=== PATIENT | female | born 1985 | race Caucasian/White ===

== ENCOUNTER 2017-12-01 20:38 | Emergency (ER) | payer OTHER ==
[~2017-12-01] VITALS: Ht 175.3 cm; Wt 74.8 kg
[~2017-12-01 20:38] MED LIST: HYDROXYZINE HCL50 M1 PO; PREDNISONE10 M2 PO
[2017-12-01 20:55] VITALS: BP 137/88
--- NOTE | 2017-12-01 22:11 | ED HAND/WRIST INJURY COMPLAINT ---
History of Present Illness General Chief Complaint: Laceration Procedure Stated Complaint: LAC ON L INDEX FINGER Source: patient Exam Limitations: no limitations Vital Signs & Intake/Output Vital Signs & Intake/Output Vital Signs Date Time Temp Pulse Resp B/P B/P Pulse O2 O2 Flow FiO2 Mean Ox Delivery Rate 12/01 2054 97.6 67 20 137/88 97 Room Air ED Intake and Output 12/02 0000 12/01 1200 Intake Total Output Total Balance Patient 165 lb Weight Weight Estimated Measurement Method Allergies Coded Allergies: azithromycin (From ZITHROMAX) (ANALPHYLAXIS 11/07/17) cefuroxime (From CEFTIN) (ANAPHYLAXIS 11/07/17) Reconcile Medications Hydroxyzine Hydrochloride (Atarax) 50 MG TAB 1 TAB PO TID PRN ITCHING Prednisone 10 MG TABLET 1 DOSE PO ONCE DAILY ALLERGIC REACTION 4 TABS po X 3 DAYS THEN 3 TABS po X 3 DAYS THEN 2 TABS po X 3 DAYS THEN 1 TAB PO X 3 DAYS Triage Note: RECEIVED 31 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 OCCURED AT HOME ON KNIFE. Triage Nurses Notes Reviewed? yes Occurred: just prior to arrival Duration: minute(s): Timing: single episode today Injury Environment: home Severity: mild Pain/Injury Location: Right: 1st finger. Context: laceration Method of Injury: laceration : No Patient currently breastfeeds: No HPI: 31yo female presents to ED complaining of laceration to right index finger. Patient states she cut finger on louis razor blade at home prior to arrival. Patient applied pressure and band-aid and presented here to ED. patient is unsure when her last tetanus vaccine was. Patient was able to control bleeding well prior to arrival. Patient denies numbness, tingling, limited range of motion. (Yue Cervantes) Past History Travel History Traveled to [place] past 21 day No Medical History Any Pertinent Medical History? see below for history Neurological: NONE EENT: NONE Cardiovascular: NONE Respiratory: asthma Gastrointestinal: Crohn's disease Hepatic: NONE Renal: NONE Musculoskeletal: NONE Psychiatric: NONE Endocrine: NONE Blood Disorders: NONE Cancer(s): NONE Surgical History Surgical History: none Psychosocial History What is your primary language Latvian Tobacco Use: Never used Family History Hx Contributory? No (Yue Cervantes) Review of Systems Review of Systems Constitutional: Reports: no symptoms. EENTM: Reports: no symptoms. Respiratory: Reports: no symptoms. Cardiovascular: Reports: no symptoms. GI: Reports: no symptoms. Genitourinary: Reports: no symptoms. Musculoskeletal: Reports: see HPI. Skin: Reports: see HPI. Neurological/Psychological: Reports: no symptoms. Hematologic/Endocrine: Reports: no symptoms. Immunologic/Allergic: Reports: no symptoms. All Other Systems: Reviewed and Negative (Yue Cervantes) Physical Exam Physical Exam General Appearance: well developed/nourished, no apparent distress, alert, awake Head: atraumatic, normal appearance Eyes: Bilateral: normal appearance. Ears, Nose, Throat: hearing grossly normal Neck: normal inspection, supple, full range of motion Cardiovascular/Respiratory: no respiratory distress Back: normal inspection, normal range of motion Shoulder Left: normal range of motion, normal inspection Shoulder Right: normal range of motion, normal inspection Elbow Left: normal range of motion, normal inspection Elbow Right: normal range of motion, normal inspection Forearm Left: normal range of motion, normal inspection Forearm Right: normal range of motion, normal inspection Wrist Left: normal range of motion, normal inspection Wrist Right: normal range of motion, normal inspection Hand Left: normal inspection, normal range of motion Hand Right: 0.5cm skin avulsion to distal index finger Neurologic/Tendon: normal sensation, normal motor functions, normal tendon functions Skin: skin avulsion R index finger (Yue Cervantes) Progress Differential Diagnosis: contusion, fracture, sprain, skin avulsion, laceration Plan of Care: Skin evulsion closed with 3 layers of skin glue. Area was cleansed with alcohol swab prior to skin closure. Patient educated on symptoms of infection. She will keep area clean and dry for 3 days. She will follow up with any worsening symptoms or other concerns. Patient tolerated procedure well. (Yue Cervantes) Departure Departure Disposition: HOME OR SELF CARE Condition: Stable Clinical Impression Primary Impression: Avulsion of skin of finger Qualifiers: Encounter type: initial encounter Qualified Code: S61.209A - Unspecified open wound of unspecified finger without damage to nail, initial encounter Referrals: Yolanda Dietrich DO (PCP/Family) Additional Instructions: Keep area covered and keep it dry for at least 3 days. Skin glue will dissolve on its own. Monitor for signs of infection such as redness, swelling, increasing pain. With any of these symptoms or other concerns please return to the emergency department. Please note that there might be incidental findings in your evaluation that are unrelated to the current emergency department visit. Please notify your primary care doctor about this emergency department visit in order to obtain and review all of the testing performed so that these incidental findings can be monitored as needed. If you had an x-ray performed, please understand that some fractures may not be seen on the initial set of x-rays. If your symptoms persist you might need a repeat set of x-rays to check for such a fracture. If you had a laceration evaluated, please understand that foreign bodies such as glass or wood may not be visible to the naked eye or on plain x-rays. If the wound becomes red, swollen, increasingly more painful or if there is any drainage from the wound, please have it reevaluated by a physician for the possibility of a retained foreign body. If you're unable to follow up as outlined in the discharge instructions please return to the emergency department. Thank you for choosing the [facility] Emergency Department for your care. It was a pleasure to serve you today. Departure Forms: Customer Survey General Discharge Information (Gaye GORDON,Yue Waddell) PA/ENVIRONMENTAL STUDIES PROGRAM DIRECTOR Co-Sign Statement Statement: ED Attending supervision documentation- [] I saw and evaluated the patient. I have also reviewed all the pertinent lab results and diagnostic results. I agree with the findings and the plan of care as documented in the PA's/ENVIRONMENTAL STUDIES PROGRAM DIRECTOR's documentation. [X] I have reviewed the ED Record and agree with the PA's/ENVIRONMENTAL STUDIES PROGRAM DIRECTOR's documentation. [] Additions or exceptions (if any) to the PAs/ENVIRONMENTAL STUDIES PROGRAM DIRECTOR's note and plan are summarized below: [] (Ishmael Powell DO
== END 2017-12-01 22:19 ==
LOC: ERH 20:38
DX: S61.200A Unspecified open wound of right index finger without damage to nail, initial encounter (principal); W45.8XXA Other foreign body or object entering through skin, initial encounter; Y93.9 Activity, unspecified; Y92.009 Unspecified place in unspecified non-institutional (private) residence as the place of occurrence of the external cause
CPT/HCPCS: 90471; 90714